=== PATIENT | male | born 1985 | race African-American/Black ===

== ENCOUNTER 2017-02-23 22:03 | Emergency (ER) | payer OTHER ==
[~2017-02-23] VITALS: Ht 170.2 cm; Wt 56.6 kg
[2017-02-23 23:21] LABS: HEMATOCRIT 34.8 % (38.0-50.0); MCH 26.6 PG (29.0-34.0); MCHC 31.9 G/DL (30.0-36.0); MCV 83.3 FL (86-99); MEAN PLAT.VOLUME 8.9 uM^3 (9.0-12.4); PLATELET COUNT 336 K/uL (156-360); RBC DIS.WIDTH-SD 42.5 % (39-53); RED BLOOD COUNT 4.18 M/uL (4.00-5.50); WHITE BLOOD COUNT 5.2 K/uL (4.1-10.2)
[2017-02-23 23:34] LABS: CHLORIDE 105 mEq/L (99-109); POTASSIUM 3.9 mEq/L (3.7-5.4); SODIUM 139 mEq/L (136-147)
[2017-02-23 23:36] LABS: GLUCOSE 80 mg/dL (70-99)
[2017-02-23 23:37] LABS: ANION GAP 8 MEQ/L (2-14)
[2017-02-23 23:38] LABS: TOTAL BILIRUBIN 0.2 mg/dL (0.0-1.0)
[2017-02-23 23:39] LABS: ALKALINE PHOSPHATASE 59 IU/L (3-129)
[2017-02-23 23:40] LABS: GFR ESTIMATE (CALCULATED) > 59 mL/min/
[2017-02-23 23:41] LABS: UREA NITROGEN (BUN) 7 mg/dL (9-23)
[2017-02-23 23:43] LABS: LIPASE 31 U/L (1.0-51.0)
[2017-02-24 06:45] VITALS: BP 134/85
== END 2017-02-24 07:28 | disposition short-term general hospital (02) ==
LOC: EME 22:03
PROVIDERS: Emergency Medicine
PROC: 0T9B70Z Drainage of Bladder with Drainage Device, Via Natural or Artificial Opening (ICD-10-PCS; principal; 2017-02-23)
DX: T81.4XXA Infection following a procedure, initial encounter (principal); K65.1 Peritoneal abscess; K91.858 Other complications of intestinal pouch; Y83.2 Surgical operation with anastomosis, bypass or graft as the cause of abnormal reaction of the patient, or of later complication, without mention of misadventure at the time of the procedure; N13.30 Unspecified hydronephrosis; D48.1 Neoplasm of uncertain behavior of connective and other soft tissue; Z92.21 Personal history of antineoplastic chemotherapy
CPT/HCPCS: 74176; 74177; 80053; 83605; 83690; 85027; 87040; 99281; 99284; J2270; J2405; J2543; J7030; S0030